=== PATIENT | male | born 1945 | race African-American/Black ===

== ENCOUNTER 2023-09-22 17:52 | Emergency (ER) | payer OTHER, MEDICARE ==
[2023-09-22] MEDS ORDERED: Ondansetron PF 4 MG/2 ML Vial ONE (19:13)
[2023-09-22 19:20] LABS: #Basophils 0.1 thou/uL (0.0-0.2); #Lymphocytes 1.3 thou/uL (1.20-3.40); #Monocytes 1.1 thou/uL (0.11-0.59); #Neutrophils 6.4 thou/uL (1.40-6.50); %Basophils 1.4 % (0.0-1.0); %Eosinophils 0.3 % (0.0-10.0); %Lymphocytes 14.1 % (21.0-51.0); %Monocytes 11.9 % (0.0-10.0); %Neutrophils 72.3 % (42.0-75.0); Hematocrit 47.8 % (42.0-52.0); Hemoglobin 15.6 g/dL (14.0-18.0); Mean Corpuscular HGB CONC 32.5 g/dL (32.0-36.0); Mean Corpuscular Volume 86.1 fl (78.0-98.0); Mean Platelet Volume 6.4 fL (7.4-10.4); Platelet Count 323 10x3/uL (130-400); RBC Distribution Width 12.5 % (11.5-14.5); Red Blood Cell (RBC) Count 5.56 mill/uL (4.70-6.10); White Blood Cell (WBC) Count 8.9 10x3/uL (4.8-10.8)
[2023-09-22 19:40] LABS: Troponin I 0.175 ng/mL (< 0.028)
[2023-09-22 19:41] LABS: ALT (SGPT) 14 U/L (8-55); AST (SGOT) 17 U/L (5-34); Albumin 3.3 g/dL (3.4-4.8); Alkaline Phosphatase 55 U/L (40-110); Anion Gap 18 mmol/L (10-20); BUN (Urea Nitrogen) 21 mg/dL (8.4-25.7); Bilirubin, Total 0.7 mg/dL (0.2-1.2); Calc. Creatinine Clearance 0 mL/min (70-130); Calcium 8.8 mg/dL (7.8-10.44); Carbon Dioxide 15 mmol/L (23-31); Chloride 105 mmol/L (98-107); Estimated GFR 92; Globulin 3.9 g/dL (2.4-3.5); Glucose 163 mg/dL (83-110); Lipase 20 U/L (8-78); Magnesium 2.3 mg/dL (1.6-2.6); Potassium 4.4 mmol/L (3.5-5.1); Protein, Total 7.2 g/dL (5.8-8.1); Sodium 134 mmol/L (136-145)
[2023-09-22] MEDS ORDERED: Morphine 4 MG/ML VIAL ONE (20:05)
[2023-09-22] MEDS ORDERED: Aspirin Chewable 81 MG TAB ONE (20:05)
[2023-09-22 20:08] LABS: Bilirubin Negative (Negative); Blood, Urine Trace (Negative); Glucose, Urine (Dipstick) Negative (Negative); Ketone, Urine Negative (Negative); Leukocyte Small (Negative); Nitrite Negative (Negative); Protein, Urine (Dipstick) 30 mg/dL (Neg-Trace)
[2023-09-22 20:10] LABS: Clarity Slightly Cloudy (Clear)
[2023-09-22 20:19] LABS: CAUTI Indications for Culture Dysuria,urgency,freq
[2023-09-22 20:20] LABS: Bacteria/HPF 4+ HPF (None Seen); Squamous Epithelial None Seen HPF (0-3)
[2023-09-22 20:21] LABS: Urine Culture Reflex Yes Yes
[2023-09-22] MEDS ORDERED: cefTRIAXone (ROCEPHIN) 1 GM VIAL ONE (20:38)
[2023-09-23 00:29] LABS: Critical Call Chem Troponin I ERS.VB1@1225; Troponin I 0.315 ng/mL (< 0.028)
[2023-09-23] MEDS ORDERED: Enoxaparin 100 MG (1 mL) SYRINGE ONE (00:37)
[2023-09-23 01:30] LABS: Base Excess-Venous -6.6 mmol/L (-2.0 to 3.0); Bicarbonate (HCO3v) 17.6 mmol/L (22.0-28.0); Calcium, Ionized 1.08 mmol/L (1.15-1.33); Chloride 108 mmol/L (98-107); Hemoglobin - Calc 14.4 g/dL (14.0-18.0); Potassium 3.8 mmol/L (3.5-5.1); Sodium 139 mmol/L (138-145); T. Carbon Dioxide 18.5 mmol/L (22.0-28.0); vO2 Saturation-calc 96.4 % (60.0-85.0)
== END 2023-09-23 01:28 | disposition short-term general hospital (02) ==
LOC: BURERS 17:52
DX: I21.4 Non-ST elevation (NSTEMI) myocardial infarction (principal); L98.9 Disorder of the skin and subcutaneous tissue, unspecified; R55 Syncope and collapse; N39.0 Urinary tract infection, site not specified
CPT/HCPCS: 36415; 51701; 70450; 71045; 71275; 80053; 81001; 82330; 82435; 82550; 82803; 83605; 83690; 83735; 83880; 84132; 84295; 84484; 85014; 85025; 87040; 87086; 93005; 96361; 96372; 96374; 96375; J0696; J1650; J2270; J2405